=== PATIENT | male | born 1965 ===

== ENCOUNTER 2017-06-22 15:45 | Emergency (ER) | payer OTHER ==
[2017-06-22 16:27] VITALS: BP 129/71; PULSE 87; RESP 16; TEMP 99; O2SAT 98
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
== END 2017-06-22 18:06 | disposition home or self-care (01) ==
LOC: H.ER 15:45
DX: M51.36 Other intervertebral disc degeneration, lumbar region (principal); S39.012A Strain of muscle, fascia and tendon of lower back, initial encounter; S53.409A Unspecified sprain of unspecified elbow, initial encounter; V43.52XA Car driver injured in collision with other type car in traffic accident, initial encounter; Y92.410 Unspecified street and highway as the place of occurrence of the external cause; I10 Essential (primary) hypertension